=== PATIENT | female | born 1945 | race Caucasian/White ===

== ENCOUNTER 2017-01-30 07:52 | Day surgery (SDC) | payer OTHER ==
[~2017-01-30] VITALS: Ht 152.4 cm; Wt 47.7 kg
[2017-01-30] VITALS (8 sets, daily range): BP systolic 115–142; BP diastolic 60–90; PULSE 71–82; RESP 18–20; TEMP 97.8; O2SAT 93–97
[~2017-01-30 07:52] MED LIST: ADVAI100I PO; AZIT250T74 PO; DUONI NEB; FLON0.053; IPRA17I INH; NEBUMIS6 INH; PRAV20 PO; PRED20 PO
[2017-01-30] MEDS ORDERED: ZOLP10TA3 PO ×2 (08:31)
[2017-01-30] MEDS ORDERED: ATOR40TA16 PO ×2 (08:31)
[2017-01-30] MEDS ORDERED: UMEC1AER INH ×2 (08:31)
[2017-01-30] MEDS ORDERED: LIDOCAINE 1%/EPINEPHrine 1:100,000 SOLN 20 ML VIAL ONE (09:30)
[2017-01-30] MEDS ORDERED: fentaNYL CITRATE 250 MCG/5 ML AMP ONE (09:38)
[2017-01-30] MEDS ORDERED: MIDAZOLAM HCL 5 MG/5 ML VIAL ONE (09:38)
[2017-01-30] MEDS ORDERED: SODIUM CHLOR 0.9% 1000 ML IV SCH (10:00)
--- NOTE | 2017-01-30 10:32 | PD.RAD ---
Post CT Procedure Prog Note Pre Procedure Diagnosis: (1) Chronic obstructive pulmonary disease Post Procedure Diagnosis: (1) Chronic obstructive pulmonary disease Procedure Date: Jan 30, 2017 Supervising Radiologist: Alfred Llanos Proceduralist/Assist: RT Abigail(R)(CT) Anesthesia: Conscious Sedation Plan of Activity Patient to Unit: [facility]OPU Patient Condition: Good See PACS Report for procedural detail/treatment Biopsy Imaging Guidance: CT Side: Right Biopsy Procedure: Lung Specimen: Core Biopsy Alfred Llanos MD Jan 30, 2017 10:32
--- NOTE | 2017-01-30 10:41 | RADRPT ---
EXAM DATE/TIME: 01/30/2017 10:03 [facility] COMPARISON: No previous studies available for comparison. INDICATIONS : Right lung mass SEDATION TIME: 30 minutes BIOPSY SITE: Right lung MEDICATION(S): 1.) 2 mg midazolam (Versed) IV 2.) 100 mcg fentanyl (Sublimaze) IV DEVICE(S): 1.) 18 gauge Boland blunt needle 2.) 20 gauge Thrombin MEDICAL HISTORY : Chronic obstructive pulmonary disease. SURGICAL HISTORY : None. ENCOUNTER: Initial ACUITY: 1 day PAIN SCORE: 0/10 LOCATION: Right chest A total of three core specimen(s) were obtained and sent to the laboratory for pathologic evaluation. PROCEDURE: 1. CT guided lung biopsy. Prior to the procedure informed consent was obtained. Any appropriate prior imaging studies were rev iewed. Using automated exposure control and adjustment of the mA and/or kV according to patient size, radiation dose was kept as low as reasonably achievable to obtain optimal diagnostic quality images. The site was prepped in a sterile fashion. Full sterile technique was used, including cap, mask, parth rile gloves and gown and a large sterile sheet. Hand hygiene and 2% chlorhexidine and/or betadine/al cohol prep was utilized per protocol for cutaneous antisepsis. The skin and subcutaneous tissues wer e infiltrated with local anesthetic solution. With CT guidance the previously identified target was localized. Biopsy was performed using the presc ribed needle as above. Adequate hemostasis was obtained with compression at the puncture site. Follow-up CT scan reveals no pneumothorax. Conscious sedation was performed with the prescribed dosages and duration as above in the presence of an independent trained radiology nurse to assist in the monitoring of the patient. EKG and oximetry remained stable throughout the procedure. The patient tolerated the procedure well and there were no complications. The patient was sent to Radiology Outpatient Unit in stable condition. CONCLUSION: Uncomplicated CT guided biopsy. Alfred Llanos MD on January 30, 2017 at 10:39 Board Certified Radiologist. This report was verified electronically.
--- NOTE | 2017-01-30 11:01 | RADRPT ---
EXAM DATE/TIME: 01/30/2017 10:41 [facility] COMPARISON: CT NEEDLE BIOPSY LUNG, RIGHT, January 30, 2017, 10:03. INDICATIONS : Post right lung biopsy. MEDICAL HISTORY : Hypercholesterolemia. Chronic obstructive pulmonary disease. Emphysema. Bro nchitis. GERD. Arthritis. SURGICAL HISTORY : Cholecystectomy. Hysterectomy. Right ankle. Facial plating. ENCOUNTER: Subsequent ACUITY: 1 day PAIN SCORE: 0/10 LOCATION: Right chest FINDINGS: A single frontal expiratory view of the chest was performed. The lungs are symmetrically aerated and clear. No evidence of pneumothorax. Mediastinal structures are in the midline. The cardio-mediastinal contours and bronchopulmonary markings are unremarkable for an expiratory exam . Osseous structures are intact. CONCLUSION: There is no pneumothorax. Robinson Jones MD FACR on January 30, 2017 at 10:59 Board Certified Radiologist. This report was verified electronically.
== END 2017-01-30 14:30 | disposition home or self-care (01) ==
LOC: HRAD 07:52 → HRIP 07:54 → HRAD 14:30
PROVIDERS: ATTEND Family Medicine
DX: R91.8 Other nonspecific abnormal finding of lung field (principal); J44.9 Chronic obstructive pulmonary disease, unspecified; J18.9 Pneumonia, unspecified organism; E78.00 Pure hypercholesterolemia, unspecified; K21.9 Gastro-esophageal reflux disease without esophagitis; M19.90 Unspecified osteoarthritis, unspecified site; Z90.710 Acquired absence of both cervix and uterus
CPT/HCPCS: 32405; 71010; 77012; 88305; 88312; J2250; J3010

== ENCOUNTER 2017-02-01 04:14 | Inpatient (IN) | payer OTHER, MEDICARE ==
[2017-02-01] VITALS (12 sets, daily range): BP systolic 127–178; BP diastolic 68–91; PULSE 76–88; RESP 16–24; TEMP 96.5–97.9; O2SAT 86–100
[~2017-02-01] VITALS: Ht 165.1 cm; Wt 65.0 kg
[~2017-02-01 04:14] MED LIST changes: +ATOR40TA16 PO; +UMEC1AER INH; +ZOLP10TA3 PO
[2017-02-01] MEDS ORDERED: SODIUM CHLORIDE 0.9% FLUSH 10 ML FLUSH IVF PRN (04:30)
--- NOTE | 2017-02-01 04:36 | PD ---
HPI Chief Complaint: Respiratory Symptoms Time Seen by Provider: 04:17 Travel History International Travel<30 days: No Contact w/Intl Traveler<30days: No Traveled to known affect area: No History of Present Illness HPI 71yo F with PMH of COPD presents to the ED with c/o sob and right sided chest pain today. Pt had left breast biopsy 4 days ago and right lung biopsy 2 days ago. States she does not know the results of it. +Cough. Denies any fever, n/ v, abdominal pain, weakness or numbness. Pt had mild expiratory wheezing on right and was given albuterol treatment by [facility]. States it cleared up after that. Pt states her breathing did improve some after the treatment. Does not use oxygen at home. PFSH Past Medical History Arthritis: Yes Asthma: No Anxiety: Yes Depression: No Cancer: No Cardiovascular Problems: No High Cholesterol: Yes COPD: Yes Cerebrovascular Accident: No Diminished Hearing: No Endocrine: No Gastrointestinal Disorders: Yes (gerd) Genitourinary: No Headaches: Yes (OCC) Immune Disorder: No Implanted Vascular Access Dvce: Yes Musculoskeletal: Yes (arthritis) Neurologic: No Psychiatric: No Reproductive: Yes Respiratory: Yes (bronchitis copd emphysema) Migraines: No Seizures: No Menopausal: Yes Past Surgical History Abdominal Surgery: Yes (CHOLESYSTECTOMY) Body Medical Devices: PINS & RODS IN RIGHT FOOT, PLATES IN FACE Cardiac Surgery: No Cholecystectomy: Yes Gynecologic Surgery: Yes (PARTIAL HISTORECTOMY) Thoracic Surgery: No Other Surgery: Yes Social History Alcohol Use: Yes Tobacco Use: Yes (quit two days ago) Substance Use: No Allergies-Medications (Allergen,Severity, Reaction): Coded Allergies: Codeine (Verified Allergy, Mild, ITCHY, 02/01/17) Reported Meds & Prescriptions Reported Meds & Active Scripts Active Reported Atorvastatin (Atorvastatin Calcium) 40 Mg Tab 40 Mg PO HS Zolpidem (Zolpidem Tartrate) 10 Mg Tab 10 Mg PO HS PRN Anoro Ellipta Inh (Umeclidinium/Vilanterol) 62.5-25 Mcg/Act Aero 1 Puff INH DAILY Review of Systems Except as stated in HPI: all other systems reviewed are Neg Physical Exam Narrative GENERAL: 71yo F not in distress. SKIN: Focused skin assessment warm/dry. HEAD: Atraumatic. Normocephalic. EYES: Pupils equal and round. No scleral icterus. No injection or drainage. ENT: No nasal bleeding or discharge. Mucous membranes pink and moist. NECK: Trachea midline. No JVD. CARDIOVASCULAR: Regular rate and rhythm. No murmur appreciated. RESPIRATORY: No accessory muscle use. Coarse breath sounds bilaterally. Breath sounds equal bilaterally. GASTROINTESTINAL: Abdomen soft, non-tender, nondistended. No rebound tenderness or guarding. MUSCULOSKELETAL: No obvious deformities. No clubbing. No cyanosis. No edema. NEUROLOGICAL: Awake and alert. No obvious cranial nerve deficits. Motor grossly within normal limits. Normal speech. PSYCHIATRIC: Appropriate mood and affect; insight and judgment normal. Data Data Last Documented VS Vital Signs Date Time Temp Pulse Resp B/P Pulse Ox O2 Delivery O2 Flow Rate FiO2 02/01/17 08:20 97 Nasal Cannula 2 02/01/17 08:00 87 24 178/91 02/01/17 04:21 97.9 Orders Complete Blood Count With Diff (02/01/17 04:28) Basic Metabolic Panel (Bmp) (02/01/17 04:28) Act Partial Throm Time (Ptt) (02/01/17 04:28) Prothrombin Time / Inr (Pt) (02/01/17 04:28) Ckmb (Isoenzyme) Profile (02/01/17 04:28) Troponin I (02/01/17 04:28) Iv Access Insert/Monitor (02/01/17 04:28) Electrocardiogram (02/01/17 04:28) Ecg Monitoring (02/01/17 04:28) Oximetry (02/01/17 04:28) Oxygen Administration (02/01/17 04:28) Chest, Single Ap (02/01/17 04:28) Sodium Chloride 0.9% Flush (Ns Flush) (02/01/17 04:30) CKMB (02/01/17 05:00) CKMB% (02/01/17 05:00) Lidocaine 1% Inj (50 Ml) (Xylocaine 1% I (02/01/17 06:30) Midazolam Inj (Versed Inj) (02/01/17 06:59) Chest, Single Ap (02/01/17 ) Morphine Inj (Morphine Inj) (02/01/17 07:45) Ondansetron Inj (Zofran Inj) (02/01/17 07:49) Consult Cardiothoracic Surgery (02/01/17 ) Chest, Single Ap (02/01/17 ) Fentanyl Inj (Fentanyl Inj) (02/01/17 08:30) (Hub Use Only)Inp Phy Cons/Ref (02/01/17 ) Vital Signs (Adult) MIKAELA.Q4H (02/01/17 08:30) Ondansetron Inj (Zofran Inj) (02/01/17 08:30) Hydromorphone Pf Inj (Dilaudid Pf Inj) (02/01/17 08:30) Admit Order (Ed Use Only) (02/01/17 08:33) Albuterol-Ipratropium Neb (Duoneb Neb) (02/01/17 08:45) Labs Laboratory Tests Test 02/01/17 05:00 White Blood Count 5.2 TH/MM3 Red Blood Count 3.80 MIL/MM3 Hemoglobin 12.1 GM/DL Hematocrit 35.2 % Mean Corpuscular Volume 92.8 FL Mean Corpuscular Hemoglobin 31.8 PG Mean Corpuscular Hemoglobin 34.3 % Concent Red Cell Distribution Width 14.3 % Platelet Count 224 TH/MM3 Mean Platelet Volume 8.0 FL Neutrophils (%) (Auto) 58.5 % Lymphocytes (%) (Auto) 31.2 % Monocytes (%) (Auto) 6.5 % Eosinophils (%) (Auto) 3.4 % Basophils (%) (Auto) 0.4 % Neutrophils # (Auto) 3.0 TH/MM3 Lymphocytes # (Auto) 1.6 TH/MM3 Monocytes # (Auto) 0.3 TH/MM3 Eosinophils # (Auto) 0.2 TH/MM3 Basophils # (Auto) 0.0 TH/MM3 CBC Comment DIFF FINAL Differential Comment Prothrombin Time 9.8 SEC Prothromb Time International 0.9 RATIO Ratio Activated Partial 23.7 SEC Thromboplast Time Sodium Level 141 MEQ/L Potassium Level 4.4 MEQ/L Chloride Level 109 MEQ/L Carbon Dioxide Level 24.7 MEQ/L Anion Gap 7 MEQ/L Blood Urea Nitrogen 11 MG/DL Creatinine 0.70 MG/DL Estimat Glomerular Filtration 82 ML/MIN Rate Random Glucose 99 MG/DL Calcium Level 8.4 MG/DL Total Creatine Kinase 239 U/L Creatine Kinase MB LESS THAN 0.5 NG/ML Creatine Kinase MB % 0.2 % Troponin I LESS THAN 0.02 NG/ML MDM Medical Decision Making Medical Screen Exam Complete: Yes Emergency Medical Condition: Yes Interpretation(s) Last Impressions Chest X-Ray 02/01/17 0428 Signed Impressions: Service Date/Time: Wednesday, February 01, 2017 04:59 - CONCLUSION: There is a moderate size right pneumothorax without signs of tension. This likely is related to the recent right lung biopsy performed on 01/30/2017. Calvin Pulido MD Chest X-Ray 02/01/17 0000 Signed Impressions: Service Date/Time: Wednesday, February 01, 2017 08:25 - CONCLUSION: Unchanged tiny right apical pneumothorax. The right thoracostomy tube has been pulled back considerably with the catheter just inside the hemithorax. Pedro Valladares Jr., MD Chest X-Ray 02/01/17 0000 Signed Impressions: Service Date/Time: Wednesday, February 01, 2017 07:04 - CONCLUSION: 1. Small right apical pneumothorax status post chest tube placement. 2. Right basilar atelectasis. Jarvis Izquierdo MD Differential Diagnosis Malignancy vs. pneumonia vs. pleural effusion vs. hemothorax vs. PTX vs. atypical ACS Narrative Course 71yo F with sob today. Pt had right lung biopsy 2 days ago. CXR showed a moderate size right pneumothorax without signs of tension. A 10F pig tail chest tube was placed and repeat chest xray showed small right apical pneumothorax status post chest tube placement. Right basilar atelectasis. Labs reviewed, no leukocytosis. Troponin negative. Discussed with Thoracic surgeon Dr. Nguyen and placed consult. Pt reevaluated at bedside and she is feeling a lot pain. Morphine ordered for pain. I pulled out the chest tube about 2cm and repeat CXR ordered. Pt saturating 97% on 2L NC. Repeat CXR showed unchanged small right apical pneumothorax. Chest tube pulled out and just inside right hemithorax. I discussed with Dr. Mcguire and accepted to his service. Critical Care Narrative Aggregate critical care time was 45 minutes. Time to perform other separately billable procedures was not included in the critical care time. My time did not include minutes spent treating any other patients simultaneously or on activities that did not directly contribute to the patient's treatment. The services I provided to this patient were to treat and/or prevent clinically significant deterioration that could result in: cardiovascular collapse or . I provided critical care services requiring my management, as noted below: Chart data review, documentation time, medication orders and management, vital sign assessments/reviewing monitor data, ordering and reviewing lab tests, ordering and interpreting/reviewing x-rays and diagnostic studies, care of the patient and discussion of the patient with the admitting physicians. Procedures Procedure Narrative CHEST TUBE THORACOSTOMY: The right chest was prepped with Betadine and sterilely draped. The area of the fifth intercostal interspace was infiltrated with 1% lidocaine plain. Pt also given versed 2.5mg. A 0.5 centimeter incision was made with a scalpel at the fifth intercostal space. 10F pig tail chest tube placed. Sterile seal dressing placed. Patient tolerated procedure well. Diagnosis Primary Impression: Acute pneumothorax Admitting Information Admitting Physician Requests: Estrella Randhawa DO Feb 01, 2017 04:36
[2017-02-01 05:25] LABS: BASOPHIL % 0.4 % (0.0-2.0); EOSINOPHIL # 0.2 TH/MM3 (0-0.4); EOSINOPHIL % 3.4 % (0.0-4.0); HEMATOCRIT 35.2 % (35.0-46.0); HEMO FLAGS DIFF FINAL; LYMPH % 31.2 % (9.0-44.0); LYMPHOCYTE # 1.6 TH/MM3 (1.0-4.8); MEAN CELL VOLUME 92.8 FL (80.0-100.0); MEAN CORPUSCULAR HEMOGLOBIN 31.8 PG (27.0-34.0); MEAN CORPUSCULAR HGB CONC 34.3 % (32.0-36.0); MONO % 6.5 % (0.0-8.0); NEUT % 58.5 % (16.0-70.0); PLATELET COUNT 224 TH/MM3 (150-450); RED CELL DISTRIBUTION WIDTH 14.3 % (11.6-17.2); WHITE BLOOD COUNT 5.2 TH/MM3 (4.0-11.0)
--- NOTE | 2017-02-01 05:27 | RADRPT ---
EXAM DATE/TIME: 02/01/2017 04:59 [facility] COMPARISON: CHEST EXPIRATION ONLY, January 30, 2017, 10:41. CT NEEDLE BIOPSY LUNG, RIGHT, January 30, 2017, 10:03. CHEST SINGLE AP, August 19, 2014, 1:20. INDICATIONS : Shortness of breath and right sided chest pain. MEDICAL HISTORY : Chronic obstructive pulmonary disease. Emphysema. SURGICAL HISTORY : Rt lung biopsy on 01/30/17. ENCOUNTER: Initial ACUITY: 3 days PAIN SCORE: 3/10 LOCATION: Right chest FINDINGS: Portable AP view of the chest demonstrates a normal-sized cardiac silhouette with calcification of th e aorta. There is a moderate size right pneumothorax. Air space opacity is present in the right lung base. No pleural effusion is visualized. CONCLUSION: There is a moderate size right pneumothorax without signs of tension. This likely is related to the r ecent right lung biopsy performed on 01/30/2017. Calvin Pulido MD on February 01, 2017 at 5:23 Board Certified Radiologist. This report was verified electronically.
[2017-02-01 05:47] LABS: APTT (PATIENT) 23.7 SEC (24.3-30.1); INTERNATIONAL NORMALIZED RATIO 0.9 RATIO; PROTHROMBIN TIME - PATIENT 9.8 SEC (9.8-11.6)
[2017-02-01 06:10] LABS: ANION GAP 7 MEQ/L (5-15); BICARBONATE 24.7 MEQ/L (21.0-32.0); BLOOD UREA NITROGEN 11 MG/DL (7-18); CHLORIDE 109 MEQ/L (98-107); CREATINE KINASE 239 U/L (26-192); GLOMERULAR FILTRATION RATE 82 ML/MIN (>89); SODIUM (NA) 141 MEQ/L (136-145)
[2017-02-01 06:11] LABS: POTASSIUM 4.4 MEQ/L (3.5-5.1)
[2017-02-01 06:23] LABS: CKMB LESS THAN 0.5 NG/ML (0.5-3.6)
[2017-02-01] MEDS ORDERED: LIDOCAINE HCL 1% 50 ML VIAL INFIL ONE (06:30)
[2017-02-01] MEDS ORDERED: MIDAZOLAM HCL 5 MG/ML VIAL (1 ML) ONE (06:59)
--- NOTE | 2017-02-01 07:34 | RADRPT ---
EXAM DATE/TIME: 02/01/2017 07:04 [facility] COMPARISON: CHEST SINGLE AP, February 01, 2017, 4:59. INDICATIONS : Right side pneumothorax MEDICAL HISTORY : Chronic obstructive pulmonary disease. Emphysema. SURGICAL HISTORY : Right lung biopsy ENCOUNTER: Subsequent ACUITY: 1 day PAIN SCORE: 10/10 LOCATION: Bilateral chest FINDINGS: A single view of the chest demonstrates small right apical pneumothorax measures 11 mm pleural separa tion. Right basilar density. Nodular density remains within the right upper lobe. Left lung clear. Sm all caliber right-sided chest tube seen medially along the base. The cardiomediastinal contours are u nremarkable. Osseous structures are intact. CONCLUSION: 1. Small right apical pneumothorax status post chest tube placement. 2. Right basilar atelectasis. Jarvis Izquierdo MD on February 01, 2017 at 7:30 Board Certified Radiologist. This report was verified electronically.
[2017-02-01] MEDS ORDERED: MORPHINE SULFATE 4 MG/ML INJ IV PUSH ONE (07:45)
[2017-02-01] MEDS ORDERED: ONDANSETRON HCL 4 MG/2 ML VIAL ONE (07:49)
[2017-02-01] MEDS ORDERED: ONDANSETRON HCL 4 MG/2 ML VIAL IV PUSH PRN (08:30)
[2017-02-01] MEDS ORDERED: RESP: ALBUTEROL 2.5 MG/IPRATROPIUM 0.5 MG NEB (PRN) NEB (08:45)
[2017-02-01] MEDS ORDERED: ACETAMINOPHEN/HYDROcodone 325 MG/5 MG TAB PO PRN (09:15)
--- NOTE | 2017-02-01 09:16 | HHI.HP ---
[facility] Service [facility] Primary Care Physician Art Tai MD Admission Diagnosis Right pneumothorax Diagnoses: (1) Acute pneumothorax Diagnosis: Principal Chief Complaint: pain to the right chest Travel History International Travel<30 Days: No Contact w/Intl Traveler <30 Da: No Traveled to Known Affected Are: No History of Present Illness patient is a 71 y/o female who presented to ER with pain to the right chest.she says that she had a lung biopsy two days ago. she says that she started to have some pain to the right chest yesterday. however when she tried to go to bathroom last night she suddenly developed severe pain to the right chest along with sob which made her to come to ER. she says that the pain is worse with deep inspiration.she was found to have a pneumothorax and chest tube was placed in ER. at the time of my evaluation she was in no acute distress although was complaining of moderate pain to the right chest . Review of Systems Constitutional: DENIES: Fever, Weight loss, Chills, Night Sweats Eyes: DENIES: Blurred vision, Diplopia, Vision loss, Double Vision Ears, nose, mouth, throat: DENIES: Tinnitus, Vertigo, Throat pain, Epistaxis Respiratory: COMPLAINS OF: Shortness of breath, DENIES: Apneas, Cough, Snoring , Wheezing, Hemoptysis, Sputum production Cardiovascular: COMPLAINS OF: Chest pain (right sided chest pain.), DENIES: Palpitations, Syncope, Dyspnea on Exertion, PND, Lower Extremity Edema, Orthopnea, Claudication Gastrointestinal: DENIES: Abdominal pain, Black stools, Bloody stools, Constipation, Diarrhea, Nausea, Vomiting, Difficulty Swallowing, Anorexia Genitourinary: DENIES: Urinary frequency, Urgency, Hematuria, Dysuria Musculoskeletal: DENIES: Joint pain, Muscle aches, Stiffness, Joint Swelling Integumentary: DENIES: Rash Neurologic: DENIES: Abnormal gait, Headache, Localized weakness, Paresthesias, Seizures, Speech Problems, Tremor, Poor Balance Psychiatric: DENIES: Anxiety, Confusion, Mood changes, Depression, Hallucinations, Agitation, Suicidal Ideation, Homicidal Ideation, Delusions Past Family Social History Past Medical History dyslipidemia COPD Past Surgical History partial hysterectomy cholecystectomy Reported Medications Atorvastatin (Atorvastatin Calcium) 40 Mg Tab 40 Mg PO HS Zolpidem (Zolpidem Tartrate) 10 Mg Tab 10 Mg PO HS PRN Anoro Ellipta Inh (Umeclidinium/Vilanterol) 62.5-25 Mcg/Act Aero 1 Puff INH DAILY Allergies: Coded Allergies: Codeine (Verified Allergy, Mild, ITCHY, 02/01/17) Active Ordered Medications Current Medications Sodium Chloride (NS Flush) 2 ml UNSCH PRN IVF FLUSH AFTER USING IV ACCESS; Start 02/01/17 at 04:30 Lidocaine HCl (Xylocaine 1% Inj (50 ml)) 50 ml ONCE ONCE INFIL Last administered on 02/01/17 07:15; Start 02/01/17 at 06:30; Stop 02/01/17 at 06:31 ; Status DC Midazolam HCl (Versed Inj) 5 mg STK-MED ONCE .ROUTE Last administered on 07:15; Start 02/01/17 at 06:59; Stop 02/01/17 at 07:00; Status DC Morphine Sulfate (Morphine Inj) 4 mg ONCE ONCE IV PUSH Last administered on 07:54; Start 02/01/17 at 07:45; Stop 02/01/17 at 07:46; Status DC Ondansetron HCl (Zofran Inj) 4 mg STK-MED ONCE .ROUTE Last administered on 02/01 07:53; Start 02/01/17 at 07:49; Stop 02/01/17 at 07:50; Status DC Fentanyl Citrate (fentaNYL INJ) 50 mcg ONCE ONCE IV PUSH Last administered on 02/01/17 08:20; Start 02/01/17 at 08:30; Stop 02/01/17 at 08:31; Status DC Ondansetron HCl (Zofran Inj) 4 mg Q8HR PRN IV PUSH NAUSEA; Start 02/01/17 at 08 :30 Albuterol/ Ipratropium (Duoneb Neb) 1 ampule Q4HR NEB PRN NEB SOB/WHEEZING Last administered on 02/01/17 08:49; Start 02/01/17 at 08:45 Hydromorphone HCl (Dilaudid Pf Inj) 0.5 mg Q4H PRN IV PUSH PAIN; Start at 08:30 Family History breast cancer in daughter. Social History quit smoking a few days ago. drinks occasionally. Physical Exam Vital Signs Vital Signs Date Time Temp Pulse Resp B/P Pulse Ox O2 Delivery O2 Flow Rate FiO2 02/01/17 08:51 98 Nasal Cannula 2.00 02/01/17 08:35 82 24 162/72 98 Nasal Cannula 2 02/01/17 08:20 97 Nasal Cannula 2 02/01/17 08:20 97 Nasal Cannula 2 02/01/17 08:03 94 Nasal Cannula 4 02/01/17 08:03 94 Nasal Cannula 4 02/01/17 08:00 87 24 178/91 86 Room Air 02/01/17 08:00 86 26 94 Nasal Cannula 4 02/01/17 08:00 86 Room Air 02/01/17 08:00 86 Room Air 02/01/17 06:00 76 16 155/75 100 Non-Rebreather 9 02/01/17 04:23 100 Nasal Cannula 3 02/01/17 04:21 97.9 76 18 172/82 98 Physical Exam GENERAL: This is a well-nourished, well-developed patient, in no apparent distress. SKIN: No rashes, ecchymoses or lesions. Cool and dry. HEAD: Atraumatic. Normocephalic. No temporal or scalp tenderness. EYES: Pupils equal round and reactive. Extraocular motions intact. No scleral icterus. No injection or drainage. ENT: Nose without bleeding, purulent drainage or septal hematoma. Throat without erythema, tonsillar hypertrophy or exudate. Uvula midline. Airway patent. NECK: Trachea midline. No JVD or lymphadenopathy. Supple, nontender, no meningeal signs. CARDIOVASCULAR: Regular rate and rhythm without murmurs, gallops, or rubs. RESPIRATORY: diminished air entry at bases- chest tube in place. GASTROINTESTINAL: Abdomen soft, non-tender, nondistended. No hepato-splenomegaly , or palpable masses. No guarding. MUSCULOSKELETAL: Extremities without clubbing, cyanosis, or edema. No joint tenderness, effusion, or edema noted. No calf tenderness. Negative Homans sign bilaterally. NEUROLOGICAL: Awake and alert. Cranial nerves II through XII intact. Motor and sensory grossly within normal limits. Five out of 5 muscle strength in all muscle groups. Normal speech. Laboratory Laboratory Tests Test 02/01/17 05:00 White Blood Count 5.2 Red Blood Count 3.80 Hemoglobin 12.1 Hematocrit 35.2 Mean Corpuscular Volume 92.8 Mean Corpuscular Hemoglobin 31.8 Mean Corpuscular Hemoglobin 34.3 Concent Red Cell Distribution Width 14.3 Platelet Count 224 Mean Platelet Volume 8.0 Neutrophils (%) (Auto) 58.5 Lymphocytes (%) (Auto) 31.2 Monocytes (%) (Auto) 6.5 Eosinophils (%) (Auto) 3.4 Basophils (%) (Auto) 0.4 Neutrophils # (Auto) 3.0 Lymphocytes # (Auto) 1.6 Monocytes # (Auto) 0.3 Eosinophils # (Auto) 0.2 Basophils # (Auto) 0.0 CBC Comment DIFF FINAL Differential Comment Prothrombin Time 9.8 Prothromb Time International 0.9 Ratio Activated Partial 23.7 Thromboplast Time Sodium Level 141 Potassium Level 4.4 Chloride Level 109 Carbon Dioxide Level 24.7 Anion Gap 7 Blood Urea Nitrogen 11 Creatinine 0.70 Estimat Glomerular Filtration 82 Rate Random Glucose 99 Calcium Level 8.4 Total Creatine Kinase 239 Creatine Kinase MB LESS THAN 0.5 Creatine Kinase MB % 0.2 Troponin I LESS THAN 0.02 Result Diagram: 02/01/17 0500 02/01/17 0500 Imaging Last Impressions Chest X-Ray 02/01/17 0428 Signed Impressions: Service Date/Time: Wednesday, February 01, 2017 04:59 - CONCLUSION: There is a moderate size right pneumothorax without signs of tension. This likely is related to the recent right lung biopsy performed on 01/30/2017. Calvin Pulido MD Assessment and Plan Assessment and Plan A/P - pneumothorax- s/p lung biopsy s/p chest tube placement- continue with pain control- neb treatment as needed CT surgery and pulmonary consulted. -COPD- neb treatment as needed. -dyslipidemia; resume home meds -DVT prophylaxis with SCD's Discussed Condition With the patient and ER physician. Physician Certification 2 Midnight Certification Type: Admission for Inpatient Services Order for Inpatient Services The services are ordered in accordance with Medicare regulations or non- Medicare payer requirements, as applicable. In the case of services not specified as inpatient-only, they are appropriately provided as inpatient services in accordance with the 2-midnight benchmark. Estimated LOS (days): 2 days is the estimated time the patient will need to remain in the hospital, assuming treatment plan goals are met and no additional complications. Post-Hospital Plan: Home Tyler Briseno MD Feb 01, 2017 09:16
--- NOTE | 2017-02-01 10:23 | RADRPT ---
EXAM DATE/TIME: 02/01/2017 08:25 [facility] COMPARISON: CHEST SINGLE AP, February 01, 2017, 7:04. INDICATIONS : Chest tube repositioning. MEDICAL HISTORY : Chronic obstructive pulmonary disease. SURGICAL HISTORY : None. ENCOUNTER: Initial ACUITY: 1 day PAIN SCORE: 0/10 LOCATION: Right chest FINDINGS: A single portable frontal view of the chest no change in small right apical pneumothorax. Right thora costomy tube is seen within the right base. It has been pulled back considerably from the prior study . Left lung is clear. Heart is normal in size. Aorta is calcified and mildly tortuous. CONCLUSION: Unchanged tiny right apical pneumothorax. The right thoracostomy tube has been pulled back considerab ly with the catheter just inside the hemithorax. Pedro Valladares Jr., MD on February 01, 2017 at 9:18 Board Certified Radiologist. This report was verified electronically.
[2017-02-01] MEDS: ACETAMINOPHEN/HYDROcodone 325 MG/5 MG TAB PO PRN ×2 (11:25→18:12)
[2017-02-01] MEDS: HYDROmorphone HCL PF 1 MG/ML VIAL IV PUSH PRN ×2 (15:39→20:33)
--- NOTE | 2017-02-01 16:57 | EKG ---
Date Performed: 02/01/2017 Time Performed: 07:30:17 PTAGE: 71 years EKG: Sinus rhythm NORMAL ECG INTERPRETATION BASED ON A DEFAULT AGE OF 40 YEARS Compared to prior tracing no significan t change PREVIOUS TRACING : 08/19/2014 01.08 DOCTOR: Alfonso Santos Interpretating Date/Time 02/01/2017 16:56:03
[2017-02-01] MEDS ORDERED: ATORVASTATIN 40 MG TAB PO SCH (21:00)
--- NOTE | 2017-02-01 21:32 | RADRPT ---
EXAM DATE/TIME: 02/01/2017 21:06 [facility] COMPARISON: CHEST SINGLE AP, February 01, 2017, 8:25. INDICATIONS : Evaluate for pleural effusion. MEDICAL HISTORY : None. SURGICAL HISTORY : None. ENCOUNTER: Initial ACUITY: 1 day PAIN SCORE: 4/10 LOCATION: Right chest. FINDINGS: The small right chest tube has been removed. There is a tiny right apical pneumothorax measuring 12 m m which is stable. There is minimal patchiness within the right lung base consistent with atelectasi s and/or infiltrate. The left lung is clear. The heart is stable. CONCLUSION: 1. Tiny right apical pneumothorax measuring 12 mm which is stable compared to the previous examinatio n. 2. Minimal patchiness within the right lung base consistent with atelectasis and/or infiltrate. Carl Feng MD on February 01, 2017 at 21:23 Board Certified Radiologist. This report was verified electronically.
--- NOTE | 2017-02-01 21:38 | MB ---
cc: KENNETH BUTTS MD DATE OF CONSULTATION 02/01/17 1943. 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 Suggestion was for clinical and serological correlation for pulmonary Martha's granulomatosis. The patient developed chest pain early this morning. Apparently, it started yesterday afternoon when she tried to go to the restroom last night, she developed severe pain in the right chest wall, was short of breath. She was found to have a moderate size pneumothorax on the right lower lung and they placed a pigtail catheter which expanded the lung. However, she still has a remaining small right apical pneumothorax. We were consulted for chest tube management. She has no drainage noted in the Pleurovac. Her follow-up chest x-ray showed that the right thoracostomy tube was pulled back considerable with the catheter just inside the hemothorax. She has a repeat chest x-ray pending for the a.m. she also recently underwent left breast biopsy for positive mammogram and is pending which was done as an outpatient at [facility]. PAST MEDICAL HISTORY 1. COPD, 2. hyperlipidemia. PAST SURGICAL HISTORY 1. Partial hysterectomy, 2. Cholecystectomy. ALLERGIES CODEINE MEDICATIONS Home include 1. Atorvastatin 2. Zolpidem 3. ____ 4. Ellipta FAMILY HISTORY Breast cancer in her daughter who 10 years ago. SOCIAL HISTORY Quit smoking a few days ago. She has been smoking apparently for about 50 years as much as a pack and a half now down to eight cigarettes per day and no alcohol. REVIEW OF SYSTEMS GENERAL: No night sweats, fever, heat and cold intolerance. SKIN: No psoriasis, itching or hives. HEENT: No blurred vision, hearing loss. RESPIRATORY: Positive for shortness of breath, chest discomfort, GASTROINTESTINAL: No diarrhea, vomiting. GENITOURINARY: No burning, frequency, urgency CLERK: No history of TIA, CVA, seizure disorder Endocrine: No diabetes and/or hypothyroidism. PHYSICAL EXAMINATION VITAL SIGNS: Blood pressure 160/70, heart rate of 82, O2 sat 98 on 2 liters. GENERAL: The patient is awake, alert in no acute distress HEAD: Normocephalic, atraumatic. Pupils equal and reactive. Oral mucosa pink, moist. NECK: Supple. No JVD. CARDIAC: Heart sounds S1-S2 regular rate and rhythm. No rubs, murmurs, gallops. LUNGS: Diminished at the right lower lobe otherwise she has a right lateral chest wall to 20 cm of suction with no air leak. ABDOMEN: Soft, nontender. No masses or organomegaly. EXTREMITIES: No cyanosis, clubbing or edema. LABORATORY DATA Lab work shows hemoglobin 12, hematocrit 35, white cell count 5.2, platelet count 224. Sodium 141, potassium 4.1, BUN 11, creatinine 0.70, glucose 99, INR was 0.9. IMAGING STUDIES Chest x-ray as above. ASSESSMENT AND PLAN A 71-year-old patient with right pneumothorax following a right lung biopsy on the 29th status post chest tube placement. Would continue the chest tube to 20 cm suction, concern and for securing the chest tube so that he does not get pulled out and has repeat chest x-ray in the a.m. Pain control. Incentive spirometry and further plan per Dr. Butts. Dictated by WIL Pickard Kenneth PURCELL/ /6:24 PM /12:54 PM
[2017-02-02] VITALS: BP 117/58; PULSE 74; RESP 20; TEMP 97.9; O2SAT 98
--- NOTE | 2017-02-02 06:47 | RADRPT ---
EXAM DATE/TIME: 02/02/2017 05:47 [facility] COMPARISON: CHEST SINGLE AP, February 01, 2017, 8:25. CHEST SINGLE AP, February 01, 2017, 21:06. INDICATIONS : Evaluate for pneumothorax. MEDICAL HISTORY : Chronic obstructive pulmonary disease. Emphysema. Pneumothorax, right. SURGICAL HISTORY : Chest tube, right. ENCOUNTER: Subsequent ACUITY: 2 days PAIN SCORE: Non-responsive. LOCATION: Bilateral chest FINDINGS: Portable AP view of the chest demonstrates a normal-sized cardiac silhouette with calcification of th e aorta. A tiny right apical pneumothorax remains present. There is airspace opacity at the perfor ri ght lung base. No pleural effusion is appreciated. CONCLUSION: 1. Stable tiny right apical pneumothorax. 2. Stable airspace opacity at the right lung base. Calvin Pulido MD on February 02, 2017 at 6:45 Board Certified Radiologist. This report was verified electronically.
[2017-02-02 08:00] VITALS: BP 148/68; PULSE 73; RESP 20; TEMP 96.5; O2SAT 97
[2017-02-02 08:51] VITALS: O2SAT 95
[2017-02-02] MEDS ORDERED: UMECLIDINIUM 62.5 MCG/VILANTEROL 25 MCG INHALER INH SCH (09:00)
--- NOTE | 2017-02-02 09:59 | PD.CAR.PN ---
CVT Progress Note Subjective/Hospital Course: CT apparently inadvertently came out yesterday CXR this am looks stable No need for further CT placement or surgical interventions OK to discharge form my standpoint Objective: Vital Signs Date Time Temp Pulse Resp B/P Pulse Ox O2 Delivery O2 Flow Rate FiO2 02/02/17 08:51 95 Nasal Cannula 2.00 02/02/17 08:00 96.5 73 20 148/68 97 02/02/17 00:00 97.9 74 20 117/58 98 02/01/17 21:33 18 02/01/17 21:28 98 Nasal Cannula 2.00 02/01/17 20:00 97.6 80 20 127/68 96 02/01/17 16:00 96.5 88 20 176/81 92 02/01/17 14:54 76 20 165/76 98 Nasal Cannula 2 02/01/17 12:39 77 20 144/69 98 Nasal Cannula 2 Result Diagram: 02/01/17 0500 02/01/17 0500 Geno Nguyen MD Feb 02, 2017 09:59
--- NOTE | 2017-02-02 10:42 | HHI.PR ---
Subjective Remarks resting comfortably with no distress. chest tube is out. looks comfortable. pain is better. no new complaints. Objective Vitals Vital Signs Date Time Temp Pulse Resp B/P Pulse Ox O2 Delivery O2 Flow Rate FiO2 02/02/17 08:51 95 Nasal Cannula 2.00 02/02/17 08:00 96.5 73 20 148/68 97 02/02/17 00:00 97.9 74 20 117/58 98 02/01/17 21:33 18 02/01/17 21:28 98 Nasal Cannula 2.00 02/01/17 20:00 97.6 80 20 127/68 96 02/01/17 16:00 96.5 88 20 176/81 92 02/01/17 14:54 76 20 165/76 98 Nasal Cannula 2 02/01/17 12:39 77 20 144/69 98 Nasal Cannula 2 I/O 02/01/17 02/01/17 02/01/17 02/02/17 02/02/17 02/02/17 07:00 15:00 23:00 07:00 15:00 23:00 Intake Total 240 ml 240 ml 0 ml 120 ml Output Total 410 ml 900 ml Balance 240 ml -170 ml 0 ml -780 ml Intake Oral 240 ml 240 ml 120 ml IV Total 0 ml 0 ml Output Urine Total 400 ml 900 ml Chest Tube Drainage Total 10 ml # Voids 1 # Bowel Movements 0 0 0 Result Diagram: 02/01/17 0500 02/01/17 0500 Imaging Last Impressions Chest X-Ray 02/02/17 0600 Signed Impressions: Service Date/Time: Thursday, February 02, 2017 05:47 - CONCLUSION: 1. Stable tiny right apical pneumothorax. 2. Stable airspace opacity at the right lung base. Calvin Pulido MD Objective Remarks GENERAL: This is a well-nourished, well-developed patient, in no apparent distress. CARDIOVASCULAR: Regular rate and regular rhythm without murmurs, gallops, or rubs. RESPIRATORY: Clear to auscultation. Breath sounds equal bilaterally. No wheezes , rales, or rhonchi. GASTROINTESTINAL: Abdomen soft, non-tender, nondistended. Normal, active bowel sounds MUSCULOSKELETAL: Extremities without clubbing, cyanosis, or edema. NEURO: Alert & Oriented x4 to person, place, time, situation. Moves all ext x4 Procedures chest tube placement Medications and IVs Current Medications Sodium Chloride (NS Flush) 2 ml UNSCH PRN IVF FLUSH AFTER USING IV ACCESS; Start 02/01/17 at 04:30 Lidocaine HCl (Xylocaine 1% Inj (50 ml)) 50 ml ONCE ONCE INFIL Last administered on 02/01/17 07:15; Start 02/01/17 at 06:30; Stop 02/01/17 at 06:31 ; Status DC Midazolam HCl (Versed Inj) 5 mg STK-MED ONCE .ROUTE Last administered on 07:15; Start 02/01/17 at 06:59; Stop 02/01/17 at 07:00; Status DC Morphine Sulfate (Morphine Inj) 4 mg ONCE ONCE IV PUSH Last administered on 07:54; Start 02/01/17 at 07:45; Stop 02/01/17 at 07:46; Status DC Ondansetron HCl (Zofran Inj) 4 mg STK-MED ONCE .ROUTE Last administered on 02/01 07:53; Start 02/01/17 at 07:49; Stop 02/01/17 at 07:50; Status DC Fentanyl Citrate (fentaNYL INJ) 50 mcg ONCE ONCE IV PUSH Last administered on 02/01/17 08:20; Start 02/01/17 at 08:30; Stop 02/01/17 at 08:31; Status DC Ondansetron HCl (Zofran Inj) 4 mg Q8HR PRN IV PUSH NAUSEA; Start 02/01/17 at 08 :30 Albuterol/ Ipratropium (Duoneb Neb) 1 ampule Q4HR NEB PRN NEB SOB/WHEEZING Last administered on 02/01/17 08:49; Start 02/01/17 at 08:45 Hydromorphone HCl (Dilaudid Pf Inj) 0.5 mg Q4H PRN IV PUSH BREAKTHROUGH PAIN Last administered on 02/01/17 20:33; Start 02/01/17 at 08:30 Acetaminophen/ Hydrocodone Bitart (Wiley 5-325 Mg) 1 tab Q4H PRN PO PAIN 3-6; Start 02/01/17 at 09:15 Acetaminophen/ Hydrocodone Bitart (Wiley 5-325 Mg) 2 tab Q4H PRN PO PAIN 7-10 Last administered on 02/01/17 18:12; Start 02/01/17 at 09:15 Atorvastatin Calcium (Lipitor) 40 mg HS PO Last administered on 02/01/17 20:33 ; Start 02/01/17 at 21:00 A/P Assessment and Plan A/P - pneumothorax- s/p lung biopsy s/p chest tube placement; chest tube advertently came out last night- now with no distress and pain is much better. CT surgery cleared for discharge- pulmonary consult pending. -COPD- neb treatment as needed. -dyslipidemia; resumed home meds -DVT prophylaxis with SCD's Discharge Planning dc home today after seen and cleared by pulmonary. see med list. f/u; pcp and pulmonary. d/w the patient and RN. Tyler Briseno MD Feb 02, 2017 10:42
[2017-02-02] MEDS ORDERED: DEXT1CAP5 PO (10:44)
[2017-02-02] MEDS ORDERED: HYDR-3516 PO (10:44)
--- NOTE | 2017-02-02 10:44 | HHI.DCPOC ---
Discharge Care Plan Diagnosis: (1) Acute pneumothorax Your Health Problems Are: Shortness of Breath Goals to Promote Your Health * To prevent worsening of your condition and complications * To maintain your health at the optimal level Directions to Meet Your Goals Take your medications as prescribed Follow your dietary instruction Follow activity as directed Keep your appointments as scheduled Take your immunizations and boosters as scheduled If your symptoms worsen call your PCP, if no PCP go to Urgent Care Center or Emergency Room Smoking is Dangerous to Your Health. Avoid second hand smoke Call the 24-hour hour crisis hotline for domestic abuse at Tyler Briseno MD Feb 02, 2017 10:44
--- NOTE | 2017-02-02 10:45 | HHI.DS ---
Discharge Summary Admission Date Feb 01, 2017 at 08:34 Discharge Date: Feb 02, 2017 Admitting Diagnosis Right pneumothorax (1) Acute pneumothorax ICD Code: J93.83 Diagnosis: Principal Procedures chest tube placement Brief History - From Admission patient is a 71 y/o female who presented to ER with pain to the right chest.she says that she had a lung biopsy two days ago. she says that she started to have some pain to the right chest yesterday. however when she tried to go to bathroom last night she suddenly developed severe pain to the right chest along with sob which made her to come to ER. she says that the pain is worse with deep inspiration.she was found to have a pneumothorax and chest tube was placed in ER. at the time of my evaluation she was in no acute distress although was complaining of moderate pain to the right chest . CBC/BMP: 02/01/17 0500 02/01/17 0500 Significant Findings Laboratory Tests Test 02/01/17 05:00 Red Blood Count 3.80 MIL/MM3 (4.00-5.30) Activated Partial 23.7 SEC Thromboplast Time (24.3-30.1) Chloride Level 109 MEQ/L (98-107) Estimat Glomerular Filtration 82 ML/MIN (>89) Rate Calcium Level 8.4 MG/DL (8.5-10.1) Total Creatine Kinase 239 U/L (26-192) Creatine Kinase MB LESS THAN 0.5 NG/ML (0.5-3.6) Troponin I LESS THAN 0.02 NG/ML (0.02-0.05) Imaging Last Impressions Chest X-Ray 02/02/17 0600 Signed Impressions: Service Date/Time: Thursday, February 02, 2017 05:47 - CONCLUSION: 1. Stable tiny right apical pneumothorax. 2. Stable airspace opacity at the right lung base. Calvin Pulido MD PE at Discharge GENERAL: This is a well-nourished, well-developed patient, in no apparent distress. CARDIOVASCULAR: Regular rate and regular rhythm without murmurs, gallops, or rubs. RESPIRATORY: Clear to auscultation. Breath sounds equal bilaterally. No wheezes , rales, or rhonchi. GASTROINTESTINAL: Abdomen soft, non-tender, nondistended. Normal, active bowel sounds MUSCULOSKELETAL: Extremities without clubbing, cyanosis, or edema. NEURO: Alert & Oriented x4 to person, place, time, situation. Moves all ext x4 Hospital Course - pneumothorax- s/p lung biopsy s/p chest tube placement; chest tube advertently came out last night- now with no distress and pain is much better. CT surgery cleared for discharge- pulmonary consult pending. -COPD- neb treatment as needed. -dyslipidemia; resumed home meds -DVT prophylaxis with SCD's Pt Condition on Discharge: Good Discharge Disposition: Disch w/ Home Health Serv Discharge Time: <= 30 minutes Discharge Instructions DIET: Follow Instructions for: Heart Healthy Diet Activities you can perform: Regular-No Restrictions Follow up Referrals: PCP Follow-up Pulmonology New Medications: Dextromethorphan-Guaifenesin (Robitussin Cough Chest Congestion) 10-200 Mg Cap 1 CAP PO Q6H PRN CHEST CONGESTION AND/OR COUGH #12 Ref 0 CAP Hydrocodone-Acetaminophen (Hydrocodone-Acetaminophen) 5-325 mg Tab 1 TAB PO Q6HR PRN pain #10 Ref 0 TAB Continued Medications: Atorvastatin (Atorvastatin) 40 Mg Tab 40 MG PO HS Cholesterol Management #30 Ref 0 TAB Umeclidinium-Vilanterol Inh (Anoro Ellipta Inh) 62.5-25 Mcg/Act Aero 1 PUFF INH DAILY COPD #1 Ref 0 INHALER Zolpidem (Zolpidem) 10 Mg Tab 10 MG PO HS PRN INSOMNIA Ref 0 TAB Tyler Briseno MD Feb 02, 2017 10:45
--- NOTE | 2017-02-02 10:45 | HHI.FF ---
Face to Face Verification Diagnosis: (1) Acute pneumothorax Home Health Nursing Order: Medical education Signs/symptoms of disease process Nursing assessment with vital signs I have seen patient Kimber Dalal on 02/02/17. My clinical findings support the need for the requested home health care services because: Patient has SOB I certify that my clinical findings support that this patient is homebound because: Hx COPD- exertion dyspnea/weakness Tyler Briseno MD Feb 02, 2017 10:45
[2017-02-02 10:55] VITALS: O2SAT 93
[2017-02-02 11:35] VITALS: O2SAT 93
[2017-02-02 12:00] VITALS: BP 134/63; PULSE 82; RESP 20; TEMP 95.5; O2SAT 96
--- NOTE | 2017-02-04 08:26 | MB ---
cc: OSITO RICCI DATE OF CONSULTATION 02/01/[address] Briseno REASON FOR CONSULTATION Pneumothorax HISTORY OF PRESENT ILLNESS Ms. Dalal is a pleasant 71-year-old female who is known to me from the office. She has a history of COPD. The patient had a CT scan done and a PET scan done which shows she has a right lung lesion and a breast lesion. She underwent breast biopsy four days ago and then she had a CT-guided biopsy of the lung. She went home. Two days later she came with right-sided chest pain. She was found to have a right pneumothorax. She was seen by radiologist and she had a chest tube placed with resolution of the pneumothorax. She still complains of right-sided chest pain, mild weakness, mild shortness of breath. No fever or chills. PAST MEDICAL HISTORY 1. History of COPD, 2. Hyperlipidemia 3. Cholecystectomy 4. Hysterectomy. MEDICATIONS Currently taking 1. Lipitor 49 mg a day 2. Woodridge 5/325 q.4 h p.r.n. 3. Zofran p.r.n. 4. Dilaudid 0.5 mg q.4 h p.r.n. ALLERGIES CODEINE SOCIAL HISTORY Fifty year history of smoking 1-2 packs a day which she cut down to 10 cigarettes a day. She takes three drinks three times a week. She is retired. She worked as a file clerk data entry. FAMILY HISTORY She is , lives alone. She has four children. Has one daughter recently with cancer of the breast. She has stepbrother. Mother with complication of childbirth. Father with heart attack. REVIEW OF SYSTEMS Her weight is stable. She has chest pain. No headache or dizziness. No nausea or vomiting. PHYSICAL EXAMINATION GENERAL: An elderly female in mild discomfort not in acute distress. VITAL SIGNS: Blood pressure 176/81, heart rate 80s, respirations 20, temperature 96.5 HEENT: Pupils are equal and reactive to light. Oral mucosa and nasal mucosa normal. NECK: Supple. JVP not raised. CHEST: Air entry equal bilaterally. She has a right chest tube in place. No rhonchi. CARDIOVASCULAR: S1, S2 normal. ABDOMEN: Benign. EXTREMITIES: No edema. IMPRESSION 1. Right pneumothorax status post chest tube placement. 2. Recent right lung biopsy. 3. Recent breast biopsy 4. COPD 5. Nicotine use. PLAN I discussed with the patient her chest tube with suction and radiology is managing it. We will supplement her oxygen. Continue aerosol treatment, pain control with Woodridge and dilaudid. Further treatment will depend on the course in the Hospital. Thank you, Dr. Briseno, for this consultation. MD ALEX Sifuentes/ /5:57 PM /8:22 AM
== END 2017-02-02 15:49 | disposition home or self-care (01) | DRG 199 ==
LOC: NEPC 04:14 → NEDA 08:34 → N07B 15:20
PROVIDERS: ADMIT Internal Medicine; ATTEND Internal Medicine
PROC: 0BBK3ZX Excision of Right Lung, Percutaneous Approach, Diagnostic (ICD-10-PCS; 2017-01-30)
PROC: 0W9930Z Drainage of Right Pleural Cavity with Drainage Device, Percutaneous Approach (ICD-10-PCS; principal; 2017-02-01)
DX: J95.811 Postprocedural pneumothorax (principal); J18.9 Pneumonia, unspecified organism; J94.2 Hemothorax; J98.11 Atelectasis; J44.9 Chronic obstructive pulmonary disease, unspecified; K21.9 Gastro-esophageal reflux disease without esophagitis; E78.5 Hyperlipidemia, unspecified; F17.200 Nicotine dependence, unspecified, uncomplicated; R91.8 Other nonspecific abnormal finding of lung field; E78.00 Pure hypercholesterolemia, unspecified; M19.90 Unspecified osteoarthritis, unspecified site; Z90.710 Acquired absence of both cervix and uterus
CPT/HCPCS: 32405; 32551; 71010; 77012; 80048; 82550; 82552; 84484; 85025; 85610; 85730; 88305; 88312; 93005; 94150; 94620; 94664; 96374; 96375; J1170; J2250; J2270; J2405; J3010

== ENCOUNTER 2017-05-10 06:31 | Day surgery (SDC) | payer OTHER ==
[~2017-05-10] VITALS: Ht 152.4 cm; Wt 50.9 kg
[2017-05-10] VITALS (7 sets, daily range): BP systolic 159–176; BP diastolic 84–98; PULSE 76–93; RESP 16–20; TEMP 97.7–97.8; O2SAT 92–97
[~2017-05-10 06:31] MED LIST changes: -ADVAI100I PO; -AZIT250T74 PO; +DEXT1CAP5 PO; -DUONI NEB; -FLON0.053; +HYDR-3516 PO; -IPRA17I INH; -NEBUMIS6 INH; -PRAV20 PO; -PRED20 PO
[2017-05-10] MEDS ORDERED: POVIDONE IODINE 5% (ANTISEPSIS KIT) 4 APPLICATIONS EACH NARE SCH (07:15)
[2017-05-10] MEDS ORDERED: CHLORHEXIDINE GLUCONATE 2 % 1 PACK (2 CLOTHS) TOPICAL SCH (07:15)
[2017-05-10] MEDS ORDERED: ceFAZolin 2 GM PREMIX 50 ML - implanted port/tunneled catheter insertion IV SCH (07:15)
[2017-05-10] MEDS ORDERED: VANCOMYCIN 1000 MG/NS 250 ML - implanted port/tunneled catheter IV SCH ×2 (07:30)
[2017-05-10 07:42] LABS: AUTOMATED NEUTROPHIL # 2.9 TH/MM3 (1.8-7.7); BASOPHIL % 0.2 % (0.0-2.0); EOSINOPHIL # 0.3 TH/MM3 (0-0.4); EOSINOPHIL % 6.6 % (0.0-4.0); HEMATOCRIT 33.7 % (35.0-46.0); HEMO FLAGS DIFF FINAL; LYMPH % 26.3 % (9.0-44.0); LYMPHOCYTE # 1.3 TH/MM3 (1.0-4.8); MEAN CELL VOLUME 93.3 FL (80.0-100.0); MEAN CORPUSCULAR HEMOGLOBIN 31.4 PG (27.0-34.0); MEAN CORPUSCULAR HGB CONC 33.6 % (32.0-36.0); MONO % 8.7 % (0.0-8.0); NEUT % 58.2 % (16.0-70.0); PLATELET COUNT 265 TH/MM3 (150-450); RED BLOOD COUNT 3.61 MIL/MM3 (4.00-5.30); RED CELL DISTRIBUTION WIDTH 14.5 % (11.6-17.2)
[2017-05-10] MEDS: ceFAZolin 2 GM PREMIX 50 ML - implanted port removal IV SCH ×2 (07:50→09:51)
[2017-05-10 07:52] LABS: APTT (PATIENT) 23.6 SEC (24.3-30.1); INTERNATIONAL NORMALIZED RATIO 0.9 RATIO
[2017-05-10] MEDS ORDERED: MIDAZOLAM HCL 5 MG/5 ML VIAL ONE (08:25)
[2017-05-10] MEDS ORDERED: fentaNYL CITRATE 250 MCG/5 ML AMP ONE (08:25)
[2017-05-10] MEDS ORDERED: LIDOCAINE 1%/EPINEPHrine 1:100,000 SOLN 20 ML VIAL ONE (08:31)
--- NOTE | 2017-05-10 09:29 | PD.RAD ---
Post Procedure Progress Note Pre Procedure Diagnosis: (1) Cancer Post Procedure Diagnosis: (1) Cancer Procedure Date: May 10, 2017 Supervising Radiologist: Alfred Llanos Proceduralist/Assist: Augusto Guerrier, RT(R), Kaykay Patel RT(R)() Anesthesia: Conscious Sedation Plan of Activity Patient to Unit: ROPU Patient Condition: Good See PACS Report for procedural detail/treatment Central Venous Access Device Procedure 1 Right Internal Jugular Infusaport Placement single lumen Alfred Llanos MD May 10, 2017 09:29
[2017-05-10] MEDS ORDERED: SODIUM CHLORIDE 0.9% FLUSH 10 ML FLUSH IVF PRN (09:30)
--- NOTE | 2017-05-10 11:03 | RADRPT ---
EXAM DATE/TIME: 05/10/2017 08:48 [facility] COMPARISON: No previous studies available for comparison.8 INDICATIONS : Patient is in need of placement of an Infusaport for chemotherapy treatment of breast cancer. MEDICAL HISTORY : History of bronchitis, COPD, hypercholesteremia. SURGICAL HISTORY : History of right ankle repair, facial reconstruction plates, bilateral mastectomy with lymph node rem oval on left side, cholecystectomy, partial hysterectomy, lung biopsy, cataract removal. ENCOUNTER: Initial ACUITY: 2 months PAIN SCORE: 0/10 FLUORO TIME: 0.3 minutes IMAGE SERIES: 1 SEDATION TIME: 30 ACCESS: Right internal jugular vein SEDATION: 1.) 4 mg midazolam (Versed) IV 2.) 200 mcg fentanyl (Sublimaze) IV Prophylactic antibiotics were administered with appropriate pre-procedure timing. Vancomycin within 2 hours of procedure, Ancef (or alternative) within 1 hour of procedure. DEVICE: 1. 8 Palauan [id number]-f-prvk Smart Port PROCEDURE : 1. Continuous pulse oximetry and EKG monitoring. 2. Intravenous conscious sedation. 3. Ultrasound guidance for venous access. 4. Fluoroscopic guided implantable central venous port placement. The patient was placed supine. The neck was prepped in sterile fashion. Full sterile technique was u sed, including cap, mask, sterile gloves and gown, and a large sterile sheet. Hand hygiene and 2% ch lorhexidine Betadine was utilized per protocol for cutaneous antisepsis with appropriate dry time for site. The skin and subcutaneous tissues were infiltrated with local anesthetic solution. Under direct ultrasound guidance, central venous access was accomplished in the targeted vessel. The ultrasound images depicting access guidance were stored and saved to PACS for permanent record. A s ubcutaneous pocket was created using blunt dissection. The port was introduced to the pocket. The c atheter tubing was fed through a subcutaneous tunnel to the venotomy site. The catheter tubing was c ut to a suitable length and then was introduced through a valved Peel-Away sheath and positioned with catheter tubing tip at the cavo-atrial junction level. The pocket incision was closed with subcutic ular Vicryl suture. Steri-Strips were applied. The port was flushed and locked with heparin solutio n per protocol. Sterile dressing was applied to the site. The patient tolerated the procedure well. Conscious sedation was performed with the prescribed dosages and duration as above in the presence of an independent trained radiology nurse to assist in the monitoring of the patient. EKG and oximetry remained stable throughout the procedure. The patient tolerated the procedure well and there were no complications. The patient was sent to post anesthesia recovery in stable condition. CONCLUSION: Uncomplicated ultrasound and fluoroscopic guided implanted central venous port catheter placement as described in detail above. An 8 Palauan Power port was placed. Alfred Llanos MD on May 10, 2017 at 11:01 Board Certified Radiologist. This report was verified electronically.
== END 2017-05-10 11:26 | disposition home or self-care (01) ==
LOC: HROP 06:31 → HRIP 06:35 → HROP 11:26
PROVIDERS: ATTEND Internal Medicine Hematology & Oncology
DX: C50.912 Malignant neoplasm of unspecified site of left female breast (principal); J43.9 Emphysema, unspecified; Z01.818 Encounter for other preprocedural examination
CPT/HCPCS: 36561; 76937; 77001; 85025; 85610; 85730; 99152; 99153; C1769; C1788; J0690; J1642; J2250; J3010; J3370; J7050

== ENCOUNTER 2017-10-01 06:17 | Day surgery (SDC) | payer OTHER, MEDICAID ==
[~2017-10-01] VITALS: Ht 152.4 cm; Wt 51.8 kg
[~2017-10-01 06:17] MED LIST changes: -DEXT1CAP5 PO; -HYDR-3516 PO
[2017-10-01 06:39] VITALS: BP 153/80; PULSE 82; RESP 20; TEMP 97.5; O2SAT 96
[2017-10-01] MEDS ORDERED: ceFAZolin 2 GM PREMIX 50 ML - implanted port removal IV SCH (07:00)
[2017-10-01] MEDS ORDERED: SODIUM CHLORIDE 0.9% 1000 ML IV SCH (07:00)
[2017-10-01 07:28] LABS: AUTOMATED NEUTROPHIL # 1.7 TH/MM3 (1.8-7.7); EOSINOPHIL # 0.1 TH/MM3 (0-0.4); EOSINOPHIL % 3.6 % (0.0-4.0); HEMATOCRIT 21.4 % (35.0-46.0); HEMO FLAGS DIFF FINAL; LYMPH % 23.8 % (9.0-44.0); LYMPHOCYTE # 0.6 TH/MM3 (1.0-4.8); MEAN CELL VOLUME 94.7 FL (80.0-100.0); MEAN CORPUSCULAR HEMOGLOBIN 31.8 PG (27.0-34.0); MEAN CORPUSCULAR HGB CONC 33.6 % (32.0-36.0); MONO % 8.3 % (0.0-8.0); NEUT % 63.3 % (16.0-70.0); PLATELET COUNT 141 TH/MM3 (150-450); RED BLOOD COUNT 2.26 MIL/MM3 (4.00-5.30); RED CELL DISTRIBUTION WIDTH 13.3 % (11.6-17.2); WHITE BLOOD COUNT 2.6 TH/MM3 (4.0-11.0)
[2017-10-01 07:37] LABS: APTT (PATIENT) 28.7 SEC (24.3-30.1); PROTHROMBIN TIME - PATIENT 10.5 SEC (9.8-11.6)
[2017-10-01] MEDS ORDERED: MIDAZOLAM HCL 2 MG/2 ML VIAL ONE (07:45)
[2017-10-01] MEDS ORDERED: LIDOCAINE 1%/EPINEPHrine 1:100,000 SOLN 20 ML VIAL ONE (08:01)
--- NOTE | 2017-10-01 08:40 | PD.RAD ---
Post Procedure Progress Note Pre Procedure Diagnosis: (1) Cancer Post Procedure Diagnosis: (1) Cancer Procedure Date: Oct 01, 2017 Supervising Radiologist: Russ Jones Estimated blood loss: 2cc Anesthesia: Local, Conscious Sedation Plan of Activity Patient to Unit: ROPU Patient Condition: Good Additional Comments: Port removed from the right chest. Patient tolerated the procedure well. Full dictated report to follow See PACS Report for procedural detail/treatment Russ Jones MD Oct 01, 2017 08:40
[2017-10-01 08:50] VITALS: BP 132/70; PULSE 85; RESP 18; TEMP 97.4; O2SAT 94
[2017-10-01 09:05] VITALS: BP 160/68; PULSE 88; RESP 18; O2SAT 95
[2017-10-01 09:35] VITALS: BP 118/47; PULSE 88; RESP 18; O2SAT 93
[2017-10-01 10:05] VITALS: BP 120/56; PULSE 89; RESP 18; O2SAT 96
--- NOTE | 2017-10-01 14:11 | RADRPT ---
EXAM DATE/TIME: 10/01/2017 07:44 [facility] COMPARISON: [id number] PLCMT, POWERPORT, W US, RIGHT, May 10, 2017, 8:48. INDICATIONS : Patient with history of breast cancer in need of [id number]-o-Wybc removal. MEDICAL HISTORY : HLD, COPD, Emphysema, GERD, Headache, Breast cancer, Right lung lesion SURGICAL HISTORY : Breast biopsy, Right lung biopsy, Colonoscopy, Bilateral mastectomy, Cholecystectomy, Port placement ENCOUNTER: Subsequent ACUITY: 7-11 months PAIN SCORE: 0/10 SEDATION TIME: 30 minutes 1.) 2 mg midazolam (Versed) IV 2.) 100 mcg fentanyl (Sublimaze) IV Prophylactic antibiotics were administered with appropriate pre-procedure timing. Vancomycin within 2 hrs of procedure, Ancef (or alternative) within 1 hr of procedure. PROCEDURE : 1. Removal of [id number]. 2. Conscious sedation with continuous EKG and oximetry monitoring. The risk, benefits and potential complications of [id number]-r-[id number] removal were discussed. Written conse nt was obtained. The patient was placed supine. The chest wall was prepped in sterile fashion. Full sterile techniqu e was used, including cap, mask, sterile gloves and gown, and a large sterile sheet. Hand hygiene an d 2% chlorhexidine and/or Betadine/alcohol prep was utilized per protocol for cutaneous antisepsis. The skin and subcutaneous tissues were infiltrated with local anesthetic solution. A small incision w as made, the subcutaneous pocket was opened. The port was dissected from the subcutaneous tissues and easily removed in one piece. The pocket incision was closed with subcuticular Vicryl suture. Steri -Strips were applied. Conscious sedation was performed with the prescribed dosages and duration as above in the presence of an independent trained radiology nurse to assist in the monitoring of the patient. EKG and oximetry remained stable throughout the procedure. The patient tolerated the procedure well and there were no complications. The patient was sent to post anesthesia recovery in stable condition. CONCLUSION: Uncomplicated port removal as above. Russ Jones MD on October 01, 2017 at 14:09 Board Certified Radiologist. This report was verified electronically.
== END 2017-10-01 10:20 | disposition home or self-care (01) ==
LOC: HROP 06:17 → HRIP 06:20 → HROP 10:20
PROVIDERS: ATTEND Internal Medicine Hematology & Oncology
DX: Z45.2 Encounter for adjustment and management of vascular access device (principal); C50.912 Malignant neoplasm of unspecified site of left female breast; E78.5 Hyperlipidemia, unspecified; J44.9 Chronic obstructive pulmonary disease, unspecified; K21.9 Gastro-esophageal reflux disease without esophagitis; Z90.13 Acquired absence of bilateral breasts and nipples
CPT/HCPCS: 36590; 85025; 85610; 85730; 99152; 99153; J0690; J2250; J3010; J7030